=== PATIENT | male | born 1995 | race Two or more races ===

== ENCOUNTER 2020-11-27 06:57 | Emergency (ER) | payer SELFPAY ==
[~2020-11-27] VITALS: Ht 180.3 cm; Wt 90.9 kg
[2020-11-27] MEDS ORDERED: ACETAMINOPHEN 500 MG TABLET PO ONE (07:30)
[2020-11-27 09:30] VITALS: BP 130/88
== END 2020-11-27 09:50 ==
LOC: EDBD 06:59 → EMS 06:59
DX: S02.2XXA Fracture of nasal bones, initial encounter for closed fracture (principal); S70.01XA Contusion of right hip, initial encounter; V49.9XXA Car occupant (driver) (passenger) injured in unspecified traffic accident, initial encounter; Y93.89 Activity, other specified; Y92.89 Other specified places as the place of occurrence of the external cause; Y99.8 Other external cause status
CPT/HCPCS: 70450; 70486; 71045; 72125; 72170; 99285